=== PATIENT | male | born 1995 | race African-American/Black ===

== ENCOUNTER 2018-01-07 13:05 | Emergency (ER) | payer SELFPAY ==
[~2018-01-07] VITALS: Ht 170.2 cm; Wt 78.9 kg
[2018-01-07 13:45] VITALS: BP 132/63
[2018-01-07] MEDS: cefTRIAXone IM 250 MG VIAL IM ONE (14:37)
[2018-01-07] MEDS: AZITHROMYCIN 250 MG TABLET. PO ONE (14:37)
--- NOTE | 2018-01-07 14:53 | PHYS DOC ---
Past Medical History Past Medical History: Asthma Past Surgical History: No Surgical History Alcohol Use: None Drug Use: None Adult General Chief Complaint Chief Complaint: SEXUALLY TRANSMITTED DISEASE HPI HPI Patient is a 22 year old m p/w cc of std exposure partner had chlamydia he has no symptoms just needs treatemnet. Current Medications Current Medications Current Medications Medications (Trade) Dose Ordered Sig/Deep Start Time Stop Time Status Last Admin Dose Admin Azithromycin (Zithromax) 1,000 mg 1X ONCE 01/07/18 14:15 01/07/18 14:16 DC 01/07/18 14:37 1,000 MG Ceftriaxone Sodium (Rocephin Im) 250 mg 1X ONCE 01/07/18 14:15 01/07/18 14:16 DC 01/07/18 14:37 250 MG Allergies Allergies Allergies Coded Allergies Type Severity Reaction Last Updated Verified [place] And Derivatives Allergy Severe Anaphylaxis 07/10/14 Yes apple Allergy Severe Anaphylaxis 07/10/14 Yes banana Allergy Severe Anaphylaxis 07/10/14 Yes fish derived Allergy Severe ANAPHYLAXIS 07/10/14 Yes pineapple Allergy Severe Anaphylaxis 07/10/14 Yes shellfish derived Allergy Severe Anaphylaxis 07/10/14 Yes Physical Exam Physical Exam Constitutional: Well developed, well nourished, no acute distress, non-toxic appearance. [] HENT: Normocephalic, atraumatic, bilateral external ears normal, oropharynx moist, no oral exudates, nose normal. [] Eyes: PERRLA, EOMI, conjunctiva normal, no discharge. [] Neck: Normal range of motion, no tenderness, supple, no stridor. [] normal respiraotry effort no increased work of breathing EKG EKG [] Radiology/Procedures Radiology/Procedures [] Course & Med Decision Making Course & Med Decision Making Pertinent Labs and Imaging studies reviewed. (See chart for details) []std exposure treated appropriately in the ed return precautiosn reviewed. Dragon Disclaimer Dragon Disclaimer This electronic medical record was generated, in whole or in part, using a voice recognition dictation system. Departure Departure Impression: Primary Impression: Sexually transmitted disease exposure Disposition: HOME, SELF-CARE Condition: STABLE Patient Instructions: Sexually Transmitted Disease, [id number] BRIAN BARAJAS MD Jan 07, 2018 14:53
== END 2018-01-07 14:45 | disposition home or self-care (01) ==
LOC: ER 13:05
DX: Z20.2 Contact with and (suspected) exposure to infections with a predominantly sexual mode of transmission (principal); J45.909 Unspecified asthma, uncomplicated; Z91.013 Allergy to seafood; Z91.018 Allergy to other foods
CPT/HCPCS: 96372; 99283; J0696; Q0144